=== PATIENT | female | born 1975 | race Caucasian/White ===

== ENCOUNTER 2019-11-19 11:08 | Outpatient (CLI) | payer BC, SELFPAY ==
--- NOTE | 2019-11-19 11:13 | MM_ITS ---
WS: [id number] BILATERAL DIGITAL SCREENING MAMMOGRAPHY WITH CAD CLINICAL INFORMATION: SCREENING HISTORY: Screening mammogram. No current complaints. COMPARISON: September 04, 2018 TECHNIQUE: Bilateral CC and MLO views. FINDINGS: The breasts are composed of heterogeneous fibroglandular density tissue, which can limit the detectio n of small underlying mass lesions. No suspicious mass, asymmetry, calcifications, or architectural d istortion. Stable nodular breast tissue bilaterally. Previously described cyst upper outer right yolis st has resolved. No evidence of malignancy. MM/[place] [id number] IMPRESSION: BI-RADS: 2-Benign FOLLOW UP: 1 Year Follow-up Recommend return to annual screening mammography.
== END 2019-11-19 11:09 | disposition home or self-care (01) ==
LOC: RADSHAW 11:11
PROVIDERS: PCP Family Medicine; Visit Provider Family Medicine
DX: Z12.31 Encounter for screening mammogram for malignant neoplasm of breast (principal)
CPT/HCPCS: 77067

== ENCOUNTER 2020-12-10 12:58 | Outpatient (CLI) | payer OTHER, SELFPAY ==
--- NOTE | 2020-12-10 13:15 | MM_ITS ---
WS: [id number] SCREENING DIGITAL MAMMOGRAM WITH CAD HISTORY: SCREENING COMPARISON: 09/04/2018, 11/19/2019, 06/20/2015 Bilateral CC and MLO views submitted. Computer aided detection analyzed. Breast composition: The breasts are heterogeneously dense, which may obscure small masses. 18 mm nodu le in the upper-outer quadrant of the LEFT breast near 1:00. May have been present on prior studies b ut has slightly increased in size. Less obscured by the adjacent fibroglandular tissue. This is very slightly hyperechoic to the adjacent fat. MM/[place] [id number] IMPRESSION: BI-RADS: 0-Incomplete: Need additional imaging evaluation FOLLOW UP: Need Additional Imaging LEFT breast: Spot compression views (CC and MLO). True ML. Ultrasound to follow if abnormality persists.
== END 2020-12-10 12:59 | disposition home or self-care (01) ==
PROVIDERS: PCP Family Medicine; Visit Provider Family Medicine
DX: Z12.31 Encounter for screening mammogram for malignant neoplasm of breast (principal)
CPT/HCPCS: 77067

== ENCOUNTER 2021-01-02 09:37 | Outpatient (CLI) | payer OTHER, SELFPAY ==
--- NOTE | 2021-01-02 09:45 | US_ITS ---
WS: [id number] Exam: US breast LT limited* [id number] Date/Time of Exam: 01/02/2021 10:27 AM Reason For Exam: ABNORMAL MAMMOGRAM Regional ultrasound is performed involving the upper outer quadrant of the left breast. At the 12:00 position 3 cm from the nipple a 1.6 x 1.4 x 0.8 cm probable cyst is noted. It is ovoid i n shape and smoothly marginated. Also noted is an intramammary lymph node with fatty hilum at the 1 o 'clock position. No suspicious solid mass or nodule was demonstrated in this area with ultrasound. Recommendations: Continue yearly screening mammography. US/US breast LT limited* [id number] IMPRESSION: 1. 1.6 x 1.4 x 0.8 cm benign-appearing smoothly marginated ovoid lesion at the 12:00 position in the left breast. This is likely a cyst. This corresponds to t he abnormality described on recent diagnostic and screening mammography. 2. Intramammary lymph node with fatty hilum at the 1:00 position. BI-RADS Category 2. Benign finding.
--- NOTE | 2021-01-02 09:45 | MM_ITS ---
WS: [id number] Exam: [place] [id number] Date/Time of Exam: 01/02/2021 9:45 AM Reason For Exam: ABNORMAL MAMMOGRAM Left diagnostic mammogram is performed. Compression spot images are obtained in the CC and MLO projec tions. A 90 degree lateral view of the left breast is also included in the series. The compression spot images partially visualized the previously described 18 mm ovoid nodule at the 1 :00 position in the left breast. No architectural distortion or suspicious calcification associated w ith the lesion. A stable appearing intramammary lymph node is noted in the upper outer quadrant of th e left breast also. Recommendations: Regional ultrasound would be indicated for further workup. MM/[place] [id number] IMPRESSION: 1. Compression spot images of the left breast demonstrate a persistent 8 mm ovo id nodule at the 1:00 position as described on recent screening mammogram. No a ssociated architectural distortion or suspicious calcification is seen. BI-RADS Category 0. Additional imaging is recommended.
== END 2021-01-02 09:38 | disposition home or self-care (01) ==
LOC: RADSHAW 09:41
PROVIDERS: PCP Family Medicine; Visit Provider Family Medicine
DX: R92.8 Other abnormal and inconclusive findings on diagnostic imaging of breast (principal); N63.21 Unspecified lump in the left breast, upper outer quadrant; N64.89 Other specified disorders of breast
CPT/HCPCS: 76642; 77065

== ENCOUNTER 2022-02-02 10:47 | Outpatient (CLI) | payer OTHER, SELFPAY ==
--- NOTE | 2022-02-02 10:54 | MM_ITS ---
WS: [id number] VIEWS: MLO and CC views both breasts. 3D digital tomosynthesis is also included in this exam. Comparison made with prior exam of 05/02/2019, 11/19/2019 and 12/10/2020. Findings: There was no sign of mass, architectural distortion or suspicious calcification in either breast. Sta ble appearing nodular densities in both breasts.Heterogeneously dense MM/[place] [id number] Impression: BI-RADS: 2-Benign FOLLOW-UP: 1 Year Follow-up This mammogram was also analyzed by the Computer Aided Detection System [employer]culation [employer].
== END 2022-02-02 10:48 | disposition home or self-care (01) ==
PROVIDERS: PCP Family Medicine; Visit Provider Family Medicine
DX: Z12.31 Encounter for screening mammogram for malignant neoplasm of breast (principal)
CPT/HCPCS: 77063; 77067

== ENCOUNTER 2023-02-08 08:50 | Outpatient (CLI) | payer OTHER, SELFPAY ==
--- NOTE | 2023-02-08 | MM_ITS ---
WS: [id number] BILATERAL 3D TOMOSYNTHESIS DIGITAL SCREENING MAMMOGRAPHY WITH CAD CLINICAL INFORMATION: SCREENING HISTORY: Screening mammogram. History of cysts. COMPARISON: 2021 TECHNIQUE: Bilateral CC and MLO views. FINDINGS: The breasts are composed of heterogeneous fibroglandular density tissue, which can limit the detectio n of small underlying mass lesions. Multiple new partially obscured ovoid nodules upper outer RIGHT b reast posterior depth the largest measuring up to 1.8 cm. These likely represent cysts considering hi story but are technically indeterminate and new from previous. In addition, progressed ovoid nodules upper outer LEFT breast also likely represent cysts but new compared to previous. Recommend bilateral breast ultrasound directed to the upper outer quadrants. In addition,progressing punctate clustered calcifications upper outer LEFT breast. Recommend further evaluation with spot magnification views. IMPRESSION: MM/[place] [id number] BI-RADS: 0-Incomplete: Need additional imaging evaluation FOLLOW UP: Need Additional Imaging Recommend bilateral breast ultrasound upper outer quadrants both breasts. LEFT breast diagnostic mammography with spot magnification views of the increas ing punctate clustered calcifications
== END 2023-02-08 08:51 | disposition home or self-care (01) ==
PROVIDERS: PCP Family Medicine; Visit Provider Family Medicine
DX: Z12.31 Encounter for screening mammogram for malignant neoplasm of breast (principal)
CPT/HCPCS: 77063; 77067

== ENCOUNTER 2023-03-14 14:00 | Outpatient (CLI) | payer OTHER, SELFPAY ==
--- NOTE | 2023-03-14 14:58 | MM_ITS ---
WS: [id number] BILATERAL 3D TOMOSYNTHESIS DIGITAL DIAGNOSTIC MAMMOGRAPHY WITH CAD CLINICAL INFORMATION: ABNORMAL MAMMO HISTORY: Additional views COMPARISON: 02/08/2023 TECHNIQUE: Bilateral CC, MLO, and ML views. FINDINGS: The breasts are composed of heterogeneous fibroglandular density, which can limit the detection of sm all underlying mass lesions. Again seen are the previously described partially obscured ovoid nodules upper outer breast bilaterally posterior depth. These are stable since the recent screening mammogra m. Ultrasound is pending. Punctate clustered calcifications upper outer LEFT breast with spot magnification views. These appear relatively stable since 01/02/2021 Spot magnification views. Stability is reassuring. These are proba eric benign recommend 6-month follow-up LEFT breast diagnostic mammography with spot modification view s to confirm stability. ULTRASOUND BREAST BILATERAL TECHNIQUE: Ultrasound bilateral breast focused area of concern. CLINICAL INFORMATION: ABNORMAL MAMMO FINDINGS: RIGHT BREAST: Ultrasound RIGHT breast upper outer quadrant. Multiple breast cysts are visualized the largest at the 10 o'clock position 4 cm from the nipple measuring 1.6 x 1.5 x 1.0 cm. Findings are be nign. LEFT BREAST: Ultrasound upper outer quadrant LEFT breast demonstrates no suspicious abnormalities. De nse parenchymal tissue. No suspicious cystic or solid lesions. Findings are benign. IMPRESSION: MM/[place] [id number] BI-RADS: 3-Probably Benign FOLLOW UP: 6 Month Follow-up Recommend 6-month follow-up of the clustered calcifications upper outer LEFT br east with spot modification views.
== END 2023-03-14 14:01 | disposition home or self-care (01) ==
PROVIDERS: PCP Family Medicine; Visit Provider Family Medicine
DX: R92.8 Other abnormal and inconclusive findings on diagnostic imaging of breast (principal)
CPT/HCPCS: 76642; 77061; G0279

== ENCOUNTER 2023-09-15 13:02 | Outpatient (CLI) | payer OTHER, SELFPAY ==
--- NOTE | 2023-09-15 13:40 | MM_ITS ---
WS: [id number] LEFT 3D TOMOSYNTHESIS DIGITAL MAMMOGRAPHY WITH CAD CLINICAL INFORMATION: 6 MO F/U CALCS HISTORY: 6-month follow-up calcifications COMPARISON: 03/14/2023 and 2020 TECHNIQUE: 3 views of the left breast were obtained. FINDINGS: The left breast is composed of heterogeneous fibroglandular density tissue, which can limit the detec tion of small underlying mass lesions. Stable previously described nodular tissue upper outer LEFT br east. Prior ultrasound demonstrated normal dense parenchymal tissue. Clustered calcifications upper outer LEFT breast. These have increased slightly compared to 01/02/2021 . Recommend additional 6-month follow-up LEFT breast diagnostic mammography with spot magnification v iews of the calcifications. IMPRESSION: MM/[place] [id number] BI-RADS: 3-Probably Benign FOLLOW UP: 6 Month Follow-up Recommend LEFT breast diagnostic mammography with spot magnification views of t he clustered calcifications
== END 2023-09-15 13:03 | disposition home or self-care (01) ==
LOC: RAD 13:03
PROVIDERS: PCP Family Medicine; Visit Provider Family Medicine
DX: R92.8 Other abnormal and inconclusive findings on diagnostic imaging of breast (principal)
CPT/HCPCS: 77061; G0279

== ENCOUNTER 2024-03-29 10:59 | Outpatient (CLI) | payer OTHER, SELFPAY ==
--- NOTE | 2024-03-29 11:05 | MM_ITS ---
WS: [id number] LEFT 3D TOMOSYNTHESIS DIGITAL MAMMOGRAPHY WITH CAD CLINICAL INFORMATION: ABNORMAL MAMMOGRAM HISTORY: 6-month follow-up COMPARISON: 09/15/2023 and 03/14/2023 TECHNIQUE: 3 views of the left breast were obtained. FINDINGS: The left breast is composed of heterogeneous fibroglandular density tissue, which can limit the detec tion of small underlying mass lesions. Again seen are the heterogeneous clustered calcifications in the upper outer LEFT breast. These appea r slightly increased and more heterogeneous and irregular compared to 09/15/2023 and 03/14/2023. Recomm end further evaluation with stereotactic guided biopsy. MM/MM diag LT tomosynthesis [id number] IMPRESSION: DENSITY: The breasts are heterogeneously dense, which may obscure small masses. BI-RADS: 0 - Incomplete: Need additional imaging evaluation FOLLOW UP: Stereotactic Biopsy Recommended Recommend further evaluation of the heterogeneous clustered calcifications with stereotactic guided biopsy
== END 2024-03-29 11:00 | disposition home or self-care (01) ==
LOC: RAD 10:59
PROVIDERS: PCP Family Medicine; Visit Provider Family Medicine
DX: R92.8 Other abnormal and inconclusive findings on diagnostic imaging of breast (principal); R92.333 Mammographic heterogeneous density, bilateral breasts; R92.1 Mammographic calcification found on diagnostic imaging of breast
CPT/HCPCS: 77061; G0279

== ENCOUNTER 2024-05-01 12:47 | Outpatient (CLI) | payer OTHER, SELFPAY | END 2024-05-01 12:48 | disposition home or self-care (01) | PROVIDERS: PCP Family Medicine; Visit Provider Family Medicine | DX: N60.32 Fibrosclerosis of left breast (principal); N60.42 Mammary duct ectasia of left breast; N60.92 Unspecified benign mammary dysplasia of left breast | CPT/HCPCS: 19081; 77065; 88305 ==